=== PATIENT | female | born 1995 | race Caucasian/White ===

== ENCOUNTER 2023-12-15 22:39 | Emergency (ER) | payer OTHER ==
[~2023-12-15] VITALS: Ht 165.1 cm; Wt 99.0 kg
[2023-12-15 23:11] VITALS: O2SAT 100
[2023-12-16] MEDS ORDERED: OXYCODONE HCL/ACETAMINOPHEN 5/325MG TABLET PO ONE (01:15)
[2023-12-16] MEDS ORDERED: ACET-2708 MT (02:20)
[2023-12-16] MEDS ORDERED: IBUP-2029 MT (02:20)
[2023-12-16 02:52] VITALS: TEMP 37.00296; O2SAT 98
[2023-12-16 02:54] VITALS: BP 129/78; PULSE 73; RESP 16
[2023-12-16] MEDS: OXYCODONE HCL/ACETAMINOPHEN 5/325MG TABLET PO NR (02:54)
== END 2023-12-16 03:02 | disposition home or self-care (01) ==
LOC: ER 22:39
DX: M25.572 Pain in left ankle and joints of left foot (principal)
CPT/HCPCS: 81025; 73610; 29515; 99283; Z7610